=== PATIENT | male | born 1970 | race Caucasian/White ===

== ENCOUNTER 2024-01-14 10:44 | Emergency (ER) | payer MEDICAID, OTHER ==
[2024-01-14] MEDS ORDERED: Boostrix 0.5 ML (Tdap) VIAL (>/=7 yrs of age) ONE (10:53)
[2024-01-14] MEDS ORDERED: Lidocaine 1% w/Epinephrine 1:100K 20 ML VIAL ONE (10:53)
[2024-01-14] MEDS ORDERED: Lidocaine 1% PF 5 ML VIAL ONE (11:37)
[2024-01-14] MEDS ORDERED: cefTRIAXone (ROCEPHIN) 1 GM VIAL ONE (11:38)
== END 2024-01-14 12:03 | disposition home or self-care (01) ==
LOC: MADERS 10:44
DX: S01.81XA Laceration without foreign body of other part of head, initial encounter (principal); S09.90XA Unspecified injury of head, initial encounter; I10 Essential (primary) hypertension; F17.210 Nicotine dependence, cigarettes, uncomplicated; Z23 Encounter for immunization; W21.00XA Struck by hit or thrown ball, unspecified type, initial encounter
CPT/HCPCS: 12032; 90471; 90715; 96372; J0696

== ENCOUNTER 2024-01-22 14:55 | Emergency (ER) | payer OTHER | END 2024-01-22 15:32 | disposition home or self-care (01) | LOC: MADERS 14:55 | DX: S01.81XD Laceration without foreign body of other part of head, subsequent encounter (principal); F17.210 Nicotine dependence, cigarettes, uncomplicated; I10 Essential (primary) hypertension; Z79.899 Other long term (current) drug therapy; W55.22XD Struck by cow, subsequent encounter ==